=== PATIENT | female | born 1985 | race Caucasian/White ===

== ENCOUNTER 2023-09-25 17:34 | Emergency (ER) | payer OTHER, SELFPAY ==
[2023-09-25 17:35] VITALS: BP 178/106
[2023-09-25 17:54] LABS: % Basophils 0.2 % (0-2); % Immature Granulocytes 0.3 % (0-0.5); % Lymphocytes 16.7 % (20.5-51.1); % Monocytes 4.3 % (1.7-9.3); % Neutrophils 78.5 % (42.2-75.2); Absolute Monocytes 0.5 10^3/uL (0.1-0.6); Absolute Neutrophils 9.5 10^3/uL (1.4-6.5); Hematocrit 37.3 % (37.0-47.0); Hemoglobin 13.4 g/dL (12.0-16.0); Mean Corp Hgb Conc. 35.9 g/dL (33.0-37.0); Mean Corpuscular Hgb 30.9 pg (27.0-31.0); Mean Corpuscular Volume 86.1 fL (81.0-99.0); Mean Platelet Volume 11.1 fL (7.4-10.4); Nucleated Red Blood Cells % 0 %; Platelet Count 267 10^3/uL (130-400); Red Blood Cell Count 4.33 10^6/uL (4.20-5.40); Red Cell Dist. Width 11.9 % (11.5-14.5); White Blood Cell Count 12.1 10^3/uL (4.8-10.8)
[2023-09-25 18:05] LABS: ALT (SGPT) 19 U/L (0-35); AST (SGOT) 26 U/L (14-36); Alkaline Phosphatase 60 U/L (38-126); Blood Urea Nitrogen 9 mg/dl (7-17); Calcium 9.9 mg/dl (8.4-10.2); Carbon Dioxide 25 mmol/L (22-30); Chloride 102 mmol/L (98-107); Glucose 122 mg/dl (70-99); Potassium 4.1 mmol/L (3.5-5.1); Sodium 135 mmol/L (135-145); Total Bilirubin 0.6 mg/dl (0.2-1.3); eGFR > 60.00
--- NOTE | 2023-09-25 18:36 | ED.GENMED ---
History of Present Illness
<Juan Manuel Kenny PA-C - Last Filed: 09/25/23 21:18>
General
Chief Complaint: Rectal Bleeding
Source: patient
Exam Limitations: none
Time Seen by Provider: 09/25/23 18:23
Travel History
Have you had any contact with someone who has COVID-19?: No
Do you have any symptoms of coronavirus? Fever > 100 degrees, chills, cough, shortness of breath, sore throat, loss of taste or smell, muscle aches, or headache?: No
History of Present Illness
History of Present Illness:
38-year-old female presents with the onset of diffuse abdominal pain doubling over in nature with associated nausea vomiting and separately had several episodes of loose bloody diarrhea. She denies any fevers. Last menstrual cycle was normal and
ended 5 days ago. She still notes intermittent lower abdominal pain. No family history of inflammatory bowel disease. No urinary symptoms. No other complaints at this time
Past History
<Juan Manuel Kenny PA-C - Last Filed: 09/25/23 21:18>
Past History
ED Past Medical History: None and Hypothyroidism
ED Past Surgical History: None
Social History
Tobacco: Non-smoker
Alcohol: None
Drug: None
Personal: Single
Living: with family
Employment: Other (Medical student)
Family History
Family History: Hypertension; Negative Early CAD
Phy Exam
<Juan Manuel Kenny PA-C - Last Filed: 09/25/23 21:18>
Physical Exam
Physical Exam:
General: Well-appearing female no acute respiratory distress
HEENT: Normocephalic atraumatic
Heart: Regular rate and rhythm no murmurs
Lungs: Clear no wheeze or rales
Abdomen: Soft normal bowel sounds nondistended mildly tender to the lower abdomen bilaterally no costovertebral angle tenderness
Extremities: No cyanosis
Course
<Juan Manuel Kenny PA-C - Last Filed: 09/25/23 21:18>
Orders/Labs/Results
Orders:
Orders
09/25/23 17:43
Type+Screen Urgent
Complete Blood Count/With Diff Urgent
Comprehensive Metabolic Panel Urgent
HCG, Serum Qualitative Screen Urgent
Comment: ADDON
09/25/23 18:34
CT Abd/pelvis W Iv Cont Urgent
Comment:
Reason For Exam: lower abdominal pain, bloody diarrhea
09/25/23 18:35
Add On- LAB Urgent
Tests Added?: serum hcg
Abnormal Lab Results
09/25/23
17:43
WBC 12.1 H 10^3/uL
(4.8-10.8)
MPV 11.1 H fL
(7.4-10.4)
Absolute Neuts (auto) 9.5 H 10^3/uL
(1.4-6.5)
Neutrophils % 78.5 H %
(42.2-75.2)
Lymphocytes % 16.7 L %
(20.5-51.1)
Glucose 122 H mg/dl
(70-99)
09/25/23 17:43
09/25/23 17:43
Vital Signs
Initial and Last Documented VS:
Initial Vital Signs
Temp Pulse Resp BP Pulse Ox
98.7 F 136 22 178/106 98
09/25/23 17:35 09/25/23 17:35 09/25/23 17:35 09/25/23 17:35 09/25/23 17:35
Last Documented Vital Signs
Temp Pulse Resp BP Pulse Ox
98.7 F 102 18 148/99 100
09/25/23 17:35 09/25/23 19:30 09/25/23 19:30 09/25/23 19:30 09/25/23 19:30
<Jose Chen, DO - Last Filed: 09/26/23 00:52>
Orders/Labs/Results
Orders:
Orders
09/25/23 17:43
Type+Screen Urgent
Complete Blood Count/With Diff Urgent
Comprehensive Metabolic Panel Urgent
HCG, Serum Qualitative Screen Urgent
Comment: ADDON
09/25/23 18:34
CT Abd/pelvis W Iv Cont Urgent
Comment:
Reason For Exam: lower abdominal pain, bloody diarrhea
09/25/23 18:35
Add On- LAB Urgent
Tests Added?: serum hcg
Abnormal Lab Results
09/25/23
17:43
WBC 12.1 H 10^3/uL
(4.8-10.8)
MPV 11.1 H fL
(7.4-10.4)
Absolute Neuts (auto) 9.5 H 10^3/uL
(1.4-6.5)
Neutrophils % 78.5 H %
(42.2-75.2)
Lymphocytes % 16.7 L %
(20.5-51.1)
Glucose 122 H mg/dl
(70-99)
09/25/23 17:43
09/25/23 17:43
Vital Signs
Initial and Last Documented VS:
Initial Vital Signs
Temp Pulse Resp BP Pulse Ox
98.7 F 136 22 178/106 98
09/25/23 17:35 09/25/23 17:35 09/25/23 17:35 09/25/23 17:35 09/25/23 17:35
Last Documented Vital Signs
Temp Pulse Resp BP Pulse Ox
98.7 F 102 18 148/99 100
09/25/23 17:35 09/25/23 19:30 09/25/23 19:30 09/25/23 19:30 09/25/23 19:30
<Juan Manuel eKnny PA-C - Last Filed: 09/25/23 21:18>
MDM/Problems Addressed
Differential Diagnosis Includes:
Abdominal pain with bloody stools. Question colitis infectious versus inflammatory. Will check labs. CT with IV contrast pending
<Juan Manuel Kenny PA-C - Last Filed: 09/25/23 21:18>
*Critical Care Note
Total Time (30-74mins, 75-104mins- exclusive of procedures): Not Applicable
<Juan Manuel Kenny PA-C - Last Filed: 09/25/23 21:18>
Update Note
Update Note:
Labs reviewed white count slightly elevated. CT demonstrates free fluid in the pelvis surrounding the rectum. Consider ruptured ovarian cyst versus proctitis. She is feeling somewhat improved. Diarrhea has slowed. Will hold off on any
antibiotics at this point. Will recommend follow-up with GI for colonoscopy
ED Attending Note
<Juan Manuel Kenny PA-C - Last Filed: 09/25/23 21:18>
-
Portions of this chart may have been created with voice recognition software.� Occasional wrong word or��sound alike� substitutions may have occurred due to the inherent limitations of voice recognition software.
<Jose Chen DO - Last Filed: 09/26/23 00:52>
ED Attending Note
Patient seen and examined by attending physician: Yes
I performed the substantive portion of visit, reviewed & personally made and approve the management plan that is documented in note by myself or WARREN.: Yes
ED Attending Note:
Reviewed CT with the patient. Check she states she feels better she is mostly concerned that she could have a mass on her bowel. Overall she is well-appearing. I did recommend close outpatient follow-up. Did recommend colonoscopy in follow-up
which she agrees to pursue.
Discharge Plan
Departure
Patient Disposition: Home (Routine Discharge)
Date of Disposition: 09/25/23
Time of Disposition: 21:17
Patient with high blood pressure during this ER visit?: No
Discharge Problem:
Rectal bleeding
Prescriptions:
No Action
Theragen Tablet
1 tab PO DAILY
Referrals:
Aaron Mattson MD [Active] -
Simon Jay MD [Family Provider] -
Activity Restrictions/Additional Instructions:
Please return here for worsening symptoms. Drink plenty clear liquids. Follow-up with GI for further evaluation and potential colonoscopy.
Interventions
Interventions:
*Risk Screen - Suicide Last Done: 09/25/23 17:35
*General Assessment Last Done: 09/25/23 17:35
*Neglect/Abuse Screening Last Done: 09/25/23 17:35
ED- Fall Risk Assessment Last Done: 09/25/23 21:26
*ED COVID-19 Vaccine History Last Done: 09/25/23 20:25
*Nursing Disposition Last Done: 09/25/23 22:15
GS-Schraj-[facility] Assessment Last Done: 09/25/23 21:26
ED- Cardiac Assessment Last Done: 09/25/23 21:26
ED- Pulmonary Assessment Last Done: 09/25/23 21:26
Discharge Date and Time
Discharge Date/Time: 09/25/23 22:16
Print Language: [id number]
[2023-09-25 19:13] LABS: HCG, Serum Qualitative Screen Negative
[2023-09-25 19:30] VITALS: BP 148/99
== END 2023-09-25 22:16 | disposition home or self-care (01) ==
LOC: EMR 17:34
PROVIDERS: Emergency Medicine; EMERGENCY PHYSICIAN Emergency Medicine; FAMILY PHYSICIAN Internal Medicine
DX: K62.5 Hemorrhage of anus and rectum (principal)
CPT/HCPCS: 99285; 74177; 80053; 84703; 85025; 86850; 86900; 86901; Q9967

== ENCOUNTER → 2024-02-23 07:12 | Outpatient (REF) | payer OTHER, SELFPAY | LOC: HWRAD 07:12 | PROVIDERS: FAMILY PHYSICIAN Internal Medicine | DX: R76.12 Nonspecific reaction to cell mediated immunity measurement of gamma interferon antigen response without active tuberculosis (principal) | CPT/HCPCS: 71045 ==